=== PATIENT | male | born 1955 | race Caucasian/White ===

== ENCOUNTER 2019-05-21 07:38 | Day surgery (SDC) | payer OTHER ==
[2019-05-21] MEDS ORDERED: PROPOFOL INJ 200 MG/20 ML VIAL IV ONE (07:56)
[2019-05-21 09:56] VITALS: BP 111/69
--- NOTE | 2019-05-21 12:15 | Operative Report ---
Operative Report DATE OF SURGERY: 05/21/19 Operative Report: Risk, benefits and alternatives of the procedure including risk of bleeding, perforation requiring surgery have been explained to the patient in detail and informed consent has been obtained. Patient is placed in a left, lateral decubital position. Timeout was called. Propofol medication is administered. Rectal examination is done which did not reveal any masses, tears or fissures. An Olympus scope was introduced into the patient's rectum. Scope was then carefully advanced all the way to the cecum. Cecum was identified by the usual anatomical landmarks including the ileocecal valve as well as the appendiceal office. Photodocumentation is obtained. Scope was then sequentially pulled back via the various segments of the colon including the ascending colon, back flexure, transverse colon, splenic flexure, descending colon and finally into th e rectosigmoid portions of the colon. Retroflexion maneuver is performed. PREOPERATIVE DIAGNOSIS: Personal history of polyp POSTOPERATIVE DIAGNOSIS: Colon polyp was removed via snare polypectomy and retrieved. Right side colon Inflammation status post biopsy. Internal hemorrhoids. Diverticulosis without any evidence of diverticulitis. OPERATION: Colonoscopy was then polypectomy. Colonoscopy with biopsy SURGEON: ANTONIO LARRY ANESTHESIA: LMAC TISSUE REMOVED OR ALTERED: As noted above. COMPLICATIONS: None. INTRAOPERATIVE FINDINGS: As noted above. PROCEDURE: Patient tolerated the procedure well. No immediate postprocedure complications are noted. Patient is discharged in good condition. Discharge date 05/21/2019. Discharge diet: Regular. Discharge activity: Regular. 2 to 3-week follow-up to discuss findings. Patient is instructed call the office or proceed to the emergency room should there be any further problems or questions. 3 to 5-year surveillance colonoscopy. Wait on the pathology of the polyp.
== END 2019-05-21 10:00 | disposition home or self-care (01) ==
LOC: END 07:38
PROVIDERS: ATTEND Internal Medicine Gastroenterology
DX: Z12.11 Encounter for screening for malignant neoplasm of colon (principal); K64.8 Other hemorrhoids; D12.4 Benign neoplasm of descending colon; K52.9 Noninfective gastroenteritis and colitis, unspecified; K57.30 Diverticulosis of large intestine without perforation or abscess without bleeding
CPT/HCPCS: 45380; 45385; 88305 ×2; 00811; J2704; 811